=== PATIENT | female | born 1970 | race African-American/Black ===

== ENCOUNTER 2020-09-03 19:20 | Emergency (ER) | payer OTHER, SELFPAY ==
[2020-09-03 19:43] VITALS: BP 163/88; PULSE 111; RESP 19; TEMP 36.7; O2SAT 99
--- NOTE | 2020-09-03 20:08 | ED.WOUNDLAC ---
HPI - Wound/Laceration General Chief Complaint: Wound/Laceration Stated Complaint: abcess Time Seen by Provider: 09/03/20 19:51 Source: patient Mode of arrival: ambulatory Limitations: no limitations History of Present Illness HPI narrative: This is a 49-year-old female that presents to the emergency department for labial abscess x2 days. Reports she has had increasing swelling to the area with pain. Denies fever or drainage. Related Data Allergies Allergy/AdvReac Type Severity Reaction Status Date / Time amoxicillin Allergy Unknown Swelling Verified 09/03/20 19:47 of Lip/Tongue/Throat Review of Systems Review of Systems: Narrative: CONSTITUTIONAL: Denies fever SKIN: Reports abscess All systems reviewed & are unremarkable except as noted in HPI and below PMFSH Past Medical History Medical History (Updated 09/03/20 @ 20:36 by Radha Elizabeth PA-C) No active medical problems Surgical History Surgical History (Updated 09/03/20 @ 20:10 by Radha Elizabeth PA-C) History of section History of tubal ligation Social History Social History Gender identity (if verbalized by the patient): Female Exam Narrative: Exam Narrative: GENERAL: Well-appearing, well-nourished, and in no acute distress. HEAD: Normocephalic, atraumatic. EYES: EOMI. CHEST: Clear to auscultation. No respiratory distress. No wheezes rales or rhonchi HEART: Regular rate and rhythm. No murmur heard. Normal peripheral pulses. ABDOMEN: Soft, nontender, nondistended, normal active bowel sounds. EXTREMITIES: Normal range of motion. No edema. SKIN: Warm, dry, no rash. NEURO: No focal deficits. Alert and oriented x3. PSYCH: Normal mood and affect FEMALE GENITAL: Left labia with small area of erythema and edema, tender to palpation Course Vital Signs Vital signs: Vital Signs Temperature 98.1 F 09/03/20 19:43 Pulse Rate 111 H 09/03/20 19:43 Respiratory Rate 19 09/03/20 19:43 Blood Pressure 163/88 H 09/03/20 19:43 Pulse Oximetry 99 09/03/20 19:43 Temperature 98.1 F 09/03/20 19:43 Pulse Rate 111 H 09/03/20 19:43 Respiratory Rate 19 09/03/20 19:43 Blood Pressure 163/88 H 09/03/20 19:43 Pulse Oximetry 99 09/03/20 19:43 Procedures Abscess I/D other: Date of Incision: 09/03/20 Time of Incision: 20:36 Side (if applicable): left Local Anesthetic: lidocaine 1% Amount of anesthesia used (mL): 5 Technique: incised with #11 blade Irrigation: No Packing used?: none I&D Results: Pus and Blood MDM - Wound/Laceration MDM Narrative Medical decision making narrative: Patient presents emergency department for labial abscess. She is afebrile and nontoxic-appearing. Successfully drained. Will be started on oral antibiotics. She is to follow-up with primary care doctor. She was given warnings to return to the ER Critical Care Time Critical Care Time Critical Care Time: No Discharge Plan Discharge Clinical Impression: Abscess Patient Disposition: Home, Self-Care Condition: Stable Instructions: Antibiotic Form, Abscess (ED) Additional Instructions: Return if symptoms worsen or concerns: any increase in redness, swelling, pain, or fever over 101 Take antibiotics as directed. Clean wound with mild soapy water. Apply antibiotic ointment and clean dressing at least three times daily. Warm compresses 3 times a day for 30 minutes each Follow up with primary care in the next 2-3 days for re-evaluation Prescriptions: New sulfamethoxazole-trimethoprim [Bactrim DS] 800-160 mg tablet 1 tablet PO Q12H 7 Days Qty: 14 RF: 0 Follow-up/Referrals: PHYSICIAN,RETURNING OFFICER [Primary Care Provider] -
[2020-09-03 20:48] VITALS: BP 159/87; PULSE 92; RESP 20; O2SAT 98
== END 2020-09-03 20:50 | disposition home or self-care (01) ==
LOC: ANHED 20:46
PROVIDERS: Emergency Provider Emergency Medicine
DX: N76.4 Abscess of vulva (principal)
CPT/HCPCS: 56405; 99283